=== PATIENT | male | born 1965 | race African-American/Black ===

== ENCOUNTER 2016-10-14 19:08 | Emergency (ER) | payer MEDICAID, OTHER ==
[~2016-10-14] VITALS: Ht 182.9 cm; Wt 99.8 kg
[2016-10-14] MEDS ORDERED: cloNIDine HCL 0.1 MG TAB ONE (21:08)
[2016-10-14] MEDS ORDERED: cloNIDine HCL 0.1 MG TAB PO ONE (21:15)
[2016-10-14 22:35] VITALS: BP 148/85
== END 2016-10-14 23:21 ==
LOC: ER 19:14
DX: Z76.1 Encounter for health supervision and care of foundling (principal); Z02.89 Encounter for other administrative examinations; I10 Essential (primary) hypertension; F12.10 Cannabis abuse, uncomplicated; F17.210 Nicotine dependence, cigarettes, uncomplicated
CPT/HCPCS: 74000; 74176; 99285; G0434